=== PATIENT | male | born 1980 | race Caucasian/White ===

== ENCOUNTER 2022-07-07 09:10 | Emergency (ER) | payer OTHER, SELFPAY ==
[2022-07-07 09:25] VITALS: BP 192/95; PULSE 80; RESP 20; TEMP 36.8; O2SAT 100
--- NOTE | 2022-07-07 09:25 | ECG_ITS ---
Measurements Intervals [place] Rate: 81 P: 14 SC: 163 QRS: 44 QRSD: 110 T: 17 QT: 355 QTc: 414 Interpretive Statements SINUS RHYTHM INCOMPLETE RIGHT BUNDLE BRANCH BLOCK CANNOT RULE OUT INFERIOR INFARCTION, AGE INDETERMINATE ABNORMAL ECG NO PREVIOUS ECG AVAILABLE FOR COMPARISON Electronically Signed On 07-07-2022 15:13:[address] Aden M.D.
--- NOTE | 2022-07-07 09:31 | ED.CHESTPAIN ---
HPI - Chest Pain General Chief Complaint: Chest Pain Stated Complaint: chest pain and lt arm pain Time Seen by Provider: 07/07/22 09:25 Source: patient, RN notes reviewed and old records reviewed Mode of arrival: ambulatory Limitations: no limitations History of Present Illness HPI narrative: 42-year-old male who presents to express care with complaints of sternal chest pain starting intermittently yesterday morning around 11:00. Patient reports that his pain didn't seem to be worse with activity and it came and went throughout the day This morning pain in his upper chest which has gone but is across his shoulders and has some aching down his arms. Patient denies any shortness of breath, no nausea or vomiting or any dizziness. Patient is a pack a day smoker for the past 10 years, social alcohol, no illicit drug use. Patient reports he was on blood pressure medication 5 years ago for about 2-3 months only, has not seen his medical doctor for about 5 years. 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 Patient received 324 mg of baby aspirin while in clinic and #20 Jelco started by RN to right forearm prior to transfer to ED. MD complaint: chest pain and other (shoulder pain and down arms) Pertinent past history: other (tobacco abuse) Onset (ago): hour(s) (started yesterday around 1100) Treatment prior to arrival: none Related Data Home Medications Medication Instructions Recorded Confirmed No Home Medications 07/07/22 07/07/22 Allergies Allergy/AdvReac Type Severity Reaction Status Date / Time No Known Allergies Allergy Unknown Verified 07/07/22 09:34 Review of Systems Review of Systems: CONSTITUTIONAL: Denies fever, chills, or sweats. EYES: Denies visual changes, redness, or discharge. ENT: Denies rhinorrhea, congestion, sore throat, or otalgia. CARDIOVASCULAR:Episodes of mid sternal chest pain, no palpitations, or edema. RESPIRATORY: Denies cough or dyspnea. GASTROINTESTINAL: Denies abdominal pain, nausea, vomiting, or diarrhea. GENITOURINARY: Denies dysuria or hematuria. SKIN: Denies rash or itching. MUSCULOSKELETAL: Denies back pain, joint pain, or myalgia. shoulder pain into arms NEUROLOGIC: Denies headache, numbness, or weakness. PSYCHIATRIC: Denies anxiety or depression. All systems reviewed & are unremarkable except as noted in HPI and below PMFSH Family History Family History (Updated 07/07/22 @ 11:45 by Madeleine Arguelles NP) Father Hypertension Diabetes mellitus Social History Social History (Updated 07/07/22 @ 11:45 by Madeleine Arguelles NP) Smoking packs per day: 1 Smoking cigarettes per day: 20.0 Years smoked: 10 Smoking pack-years: 10.00 Smoking status: Current every day smoker Tobacco type: cigarettes Alcohol intake: current Substance use type: does not use Living arrangements: with family Gender identity (if verbalized by the patient): Male Comments At time of signature, agree with nursing past medical, surgical, social and family history. There is no relevant family history pertinent to the presenting complaint Exam Narrative: GENERAL: Well-appearing, well-nourished, and in no acute distress. HEAD: Normocephalic, atraumatic. EYES: PERRLA and EOMI ENT: Nares clear, no rhinorrhea or epistaxis. Mucous membranes moist.TM normal with good light reflex, throat pink with no lesions or swelling. NECK: Supple. no lymphadenopathy, No JVD CHEST: Clear to auscultation. No respiratory distress.SAO2 98% on room air, intermittent since yesterday chest pain HEART: Regular rate and rhythm. No murmur heard. Normal peripheral pulses. ABDOMEN: Soft, nontender, nondistended, normal active bowel sounds. EXTREMITIES: Normal range of motion. No edema. SKIN: Warm, dry, no rash. NEURO: No focal deficits. Alert and oriented x3. Course Course Level of Care: Express Care Visit Vital Signs Vital signs: Vital Signs Temperature 36.8 C 07/07/22 0
[2022-07-07 09:35] VITALS: PULSE 83
[2022-07-07] MEDS: ASPIRIN 81 MG CHEWABLE TABLET 324 MG PO (09:43)
[2022-07-07 09:47] VITALS: BP 177/91; PULSE 82; RESP 16; O2SAT 98
--- NOTE | 2022-07-07 09:56 | PC.NURSE ---
report called to [facility], pt to er per [facility]. they were notified at 0940. pt denies any cp, sob, lightheadedness or dizziness upon dc. unable to print chart for transfer due to computer error, transfer form and facesheet were provided to [facility] and [facility]. , unable to locate belongings list.
== END 2022-07-07 09:56 | disposition short-term general hospital (02) ==
PROVIDERS: Emergency Provider Registered Nurse
DX: R07.9 Chest pain, unspecified (principal); F17.210 Nicotine dependence, cigarettes, uncomplicated; I45.10 Unspecified right bundle-branch block
CPT/HCPCS: 93005; 99215; A9270; G0463

== ENCOUNTER 2022-07-07 10:22 | Emergency (ER) | payer OTHER, SELFPAY ==
--- NOTE | ~2022-07-07 | XR_ITS ---
EXAMINATION: XR chest 2V 07/07/2022 11:27 INDICATION: Midline chest pain PROCEDURE: 2 view chest COMPARISON: No prior studies for comparison. FINDINGS: The lungs are clear. The cardiomediastinal silhouette is within normal limits. There are no pleural effusions. There is no pneumothorax suspected. IMPRESSION: 1: NO ACUTE CARDIOPULMONARY DISEASE. Reviewed, dictated and finalized at location B.
[2022-07-07 10:22] VITALS: PULSE 80; RESP 12; TEMP 36.8; O2SAT 97
--- NOTE | 2022-07-07 10:24 | ECG_ITS ---
Measurements Intervals [place] Rate: 77 P: 9 AR: 159 QRS: 36 QRSD: 111 T: 14 QT: 355 QTc: 404 Interpretive Statements SINUS RHYTHM INCOMPLETE RIGHT BUNDLE BRANCH BLOCK CANNOT RULE OUT INFERIOR MYOCARDIAL INFARCTION, AGE INDETERMINATE ABNORMAL ECG COMPARED TO ECG 07/07/2022 09:25:53 NO SIGNIFICANT CHANGES Electronically Signed On 07-07-2022 15:19:[address] Aden M.D.
[2022-07-07 10:29] VITALS: PULSE 78
--- NOTE | 2022-07-07 10:43 | ED.CHESTPAIN ---
HPI - Chest Pain General Chief Complaint: Chest Pain <ANNA Krishna Last Filed: 07/07/22 16:30> Stated Complaint: CP <ANNA Krishna Last Filed: 07/07/22 16:30> Time Seen by Provider: 07/07/22 10:25 <ANNA Krishna Last Filed: 07/07/22 16:30> History of Present Illness HPI narrative: Patient is a 42-year-old male with a history of smoking and hypertension here for evaluation of right-sided chest pain yesterday. Patient states that he noticed the pain when he was at rest, felt like a sharp pain on the right side of his chest. He also noticed radiation down his bilateral arms with paresthesias. Chest pain resolved without intervention, but he states that the sensation in his bilateral arms has remained. He denies associated nausea, vomiting, shortness of breath, fevers or chills, leg swelling. He presented to an urgent care facility today which transferred him to the ED for further evaluation, he was given aspirin and nitro in route. Currently feels improved but was not having much pain prior to interventions. <ANNA Krishna Last Filed: 07/07/22 16:30> Related Data Home Medications: Home Medications Medication Instructions Recorded Confirmed No Home Medications 07/07/22 07/07/22 <ANNA Krishna Last Filed: 07/07/22 16:30> Allergies/Adverse Reactions: Allergies Allergy/AdvReac Type Severity Reaction Status Date / Time No Known Allergies Allergy Unknown Verified 07/07/22 09:34 <ANNA Krishna Last Filed: 07/07/22 16:30> Review of Systems Review of Systems: Gen: Denies fevers or chills Eyes: Denies eye pain or visual change ENT: Denies congestion Respiratory: Denies shortness of breath or cough CV: Reports chest pain. GI: Denies abdominal pain nausea, emesis or diarrhea : denies burning, urgency, frequency or hematuria Musculoskeletal: Reports numbness and tingling in bilateral upper extremities. Denies back pain or muscle pain Neuro: Denies numbness, tingling, weakness or focal weakness Skin: Denies rash Except as documented, all other systems reviewed and negative <Noris Houser PA-C - Last Filed: 07/07/22 16:30> [facility] Family History Family History: Family History (Updated 07/07/22 @ 11:45 by Madeliene Arguelles NP) Father Hypertension Diabetes mellitus <ANNA Krishna Last Filed: 07/07/22 16:30> Social History Social History: Social History (Updated 07/07/22 @ 11:45 by Madeleine Arguelles NP) Smoking packs per day: 1 Smoking cigarettes per day: 20.0 Years smoked: 10 Smoking pack-years: 10.00 Smoking status: Current every day smoker Tobacco type: cigarettes Alcohol intake: current Substance use type: does not use Living arrangements: with family Gender identity (if verbalized by the patient): Male <ANNA Krishna Last Filed: 07/07/22 16:30> Exam Narrative: APPEARANCE: Well appearing, no pain in distress, well-nourished. Head: Normocephalic and atraumatic. EYES: PERRLA/EOMI, conjunctivae clear NOSE: No nasal drainage EARS: External ear normal in appearance THROAT: Oropharynx is clear. Mucous membranes are moist. NECK: Supple. No adenopathy, no masses. RESPIRATORY: Airway patent, respirations nonlabored. Clear to auscultation bilaterally, no rales, rhonchi, wheezing. CARDIOVASCULAR: Regular rate and rhythm without murmurs, rubs, or gallops. ABDOMINAL: Normoactive bowel sounds. Soft, nontender, nondistended. No rebound tenderness or guarding. MUSCULOSKELETAL: Extremities are warm and well-perfused. Moves all extremities well. No edema. NEURO: Normal speech. No focal neurologic deficits. SKIN: Skin is warm and dry. No rashes. PSYCHIATRIC: Normal affect/mood.. <ANNA Krishna Last Filed: 07/07/22 16:30> Course Vital Signs Vital signs: Vital Signs Temperature 98.2 F 1
[2022-07-07 10:57] LABS: Basophils Percent Auto 0.7 % (0.2-1.2); Eosinophils Absolute Auto 0.1 K/mm3 (0-0.3); Eosinophils Percent Auto 1.8 % (0-4.4); Hematocrit 50.5 % (42.0-52.0); Hemoglobin 16.6 g/dL (14.0-18.0); Immature Granulocyte Absolute 0.02 K/mm3 (0.00-0.031); Immature Granulocyte Percent A 0.4 % (0-0.5); Lymphocytes Absolute Auto 1.01 K/mm3 (0.9-3.2); Lymphocytes Percent Auto 22.1 % (18.3-44.2); Mean Corpuscular HGB Conc 32.9 g/dl (32-36); Mean Corpuscular Hemoglobin 29.1 pg (26-34); Mean Corpuscular Volume 88.6 fl (80-100); Mean Platelet Volume 9.2 fl (7.4-10.4); Monocytes Absolute Auto 0.5 K/mm3 (0.1-0.6); Monocytes Percent Auto 9.9 % (2.6-8.5); Neutrophils Percent Auto 65.1 % (45.5-73.1); Platelet Count Result 284 k/mm3 (150-375); Red Cell Distribution Width 13.6 % (11.5-14.5); White Blood Count 4.6 K/mm3 (4.5-10.0)
[2022-07-07 11:05] LABS: Prothrombin Time 12.7 Seconds (11.1-14.7)
[2022-07-07 11:06] LABS: Partial Thromboplastin Time 34.1 SECONDS (22.3-36.8)
[2022-07-07 11:07] LABS: Alanine Aminotransferase 97 U/L (6-50); Albumin Level 4.9 g/dL (3.5-5.1); Alkaline Phosphatase 69 U/L (38-126); Anion Gap 9 mmol/L (8-16); Aspartate Amino Transferase 61 U/L (17-59); Bilirubin,Total 0.5 mg/dL (0.2-1.3); Blood Urea Nitrogen 14 mg/dL (9-20); Calcium 9.4 mg/dL (8.4-10.2); Carbon Dioxide 28 mmol/L (22-30); Chloride 102 mmol/L (98-107); Estimated CRCL calculation 110 ml/min; Estimated Glomerular Filt Rate > 60; Glucose 113 mg/dL (65-110); Lipase 43 U/L (23-300); Potassium 4.4 mmol/L (3.4-5.0); Sodium 139 mmol/L (137-145)
[2022-07-07 11:18] LABS: Troponin I < 0.012 ng/mL (0.000-0.034)
[2022-07-07 11:33] LABS: D Dimer 0.34 ug/mL (<0.48)
[2022-07-07 12:03] LABS: SARS-CoV-2 RNA PCR Negative
[2022-07-07 12:08] VITALS: BP 159/98; PULSE 74; RESP 20; O2SAT 99
[2022-07-07] MEDS: PANTOPRAZOLE SODIUM IV 40 MG VIAL IV PUSH (12:42)
[2022-07-07 12:49] VITALS: BP 155/100; PULSE 80; RESP 15; O2SAT 98
== END 2022-07-07 13:11 | disposition home or self-care (01) ==
PROVIDERS: Physician Assistant; Emergency Provider Emergency Medicine
DX: R07.9 Chest pain, unspecified (principal); Z20.822 Contact with and (suspected) exposure to COVID-19; I10 Essential (primary) hypertension; F17.210 Nicotine dependence, cigarettes, uncomplicated; I45.10 Unspecified right bundle-branch block; R94.31 Abnormal electrocardiogram [ECG] [EKG]
CPT/HCPCS: 36415; 71046; 80053; 83690; 84484; 85025; 85380; 85610; 85730; 93005; 96374; 99284; A9270; C9113; C9803; U0003; U0005

== ENCOUNTER 2023-01-26 14:37 | Outpatient (CLI) | payer OTHER, SELFPAY ==
--- NOTE | 2023-01-26 15:09 | ECHO_ITS ---
Patient Info Name: Bartolo Campbell Age: 43 years : 1980 Gender: Male Ht: 72 in Wt: 240 lbs BSA: 2.38 m2 HR: 74 bpm BP: 184 / 90 mmHg Technical Quality: Fair Exam Date: 01/26/2023 3:20 PM Exam Location: [facility] Patient Status: Outpatient Admit Date: 01/26/2023 Staff Ordering Physician: Matthew Funez MD Transition Lead: Hue Van RDCS Attending Provider: Matthew Funez MD Exam Type: CA echo doppler color flow Study Info Indications R01.1 - Cardiac murmur, unspecified Complete two-dimensional, color flow and Doppler transthoracic echocardiogram is performed. Summary 1. Complete two-dimensional, color flow and Doppler transthoracic echocardiogram is performed. 2. Left ventricular chamber dimension is mildly enlarged. 3. Left ventricular systolic function is normal, estimated at 60-65%. 4. The left ventricular diastolic function is abnormal. 5. E/e' 12 is mildly elevated. 6. Left atrial chamber dimension is mildly enlarged. 7. There is trace tricuspid valve regurgitation. 8. Mild pulmonary hypertension, estimated pulmonary arterial systolic pressure is 42 mmHg. Left Ventricle E/e' 12 is mildly elevated. Left ventricular chamber dimension is mildly enlarged. Left ventricular systolic function is normal, estimated at 60-65%. The left ventricular diastolic function is abnormal. Right Ventricle Right ventricular chamber dimension is normal. Right ventricular systolic function is normal. Left Atria Left atrial chamber dimension is mildly enlarged. Right Atria Right atrial chamber dimension is normal. Aortic Valve The aortic valve is trileaflet. There is no aortic valve stenosis. There is no aortic valve regurgitation. Pulmonic Valve There is no pulmonic regurgitation. Mitral Valve There is no mitral valve stenosis. There is no mitral valve regurgitation. Tricuspid Valve There is trace tricuspid valve regurgitation. Mild pulmonary hypertension, estimated pulmonary arterial systolic pressure is 42 mmHg. Pericardium/Pleural There is no pericardial effusion. Inferior Vena Cava Normal inferior vena cava with >50% collapse upon inspiration consistent with normal right atrial pressure, 5 mmHg. Aorta The aortic root size at the sinus of Valsalva is normal. Left Ventricular Outflow Tract Name Value Normal LVOT 2D LVOT Diameter 2.0 cm LVOT Doppler LVOT Peak Gradient 6 mmHg LVOT Mean Gradient 4 mmHg LVOT VTI 25 cm LVOT VTI/AV VTI Ratio 0.8 LVOT Stroke Volume 82 ml LVOT CO 19.2 l/min LVOT CI 8.1 l/min/m2 Pulmonic Valve Name Value Normal PV Doppler PV Peak Gradient 9 mmHg Mitral Valve Name
== END 2023-01-26 14:38 | disposition home or self-care (01) ==
PROVIDERS: PCP Family Medicine; Visit Provider Family Medicine
DX: R01.1 Cardiac murmur, unspecified (principal); I10 Essential (primary) hypertension; R93.1 Abnormal findings on diagnostic imaging of heart and coronary circulation
CPT/HCPCS: 93306